=== PATIENT | female | born 1995 ===

== ENCOUNTER 2016-07-28 21:38 | Emergency (ER) | payer SELFPAY ==
[2016-07-28 23:02] LABS: BASO % 0.3 % (0.2-1.0); EOS % 0.5 % (0.9-2.9); HEMATOCRIT 33.9 % (37.0-47.0); IMM NEUT% 0.1 % (0-1); LYMPH # 3.1 (1.0-4.8); LYMPH % 40.9 % (15-45); MEAN CELL VOLUME 81.5 fl (81.0-99.0); MEAN CORPUSCULAR HEMOGLOBIN 26.4 pg (27.0-31.0); MEAN CORPUSCULAR HGB CONC 32.4 g/dl (33.0-37.0); MEAN PLATELET VOLUME 11.8 fl (7.4-10.4); MONO # 0.5 (0.0-0.8); MONO % 6.2 % (4-12); PLATELET COUNT 208 K/mm3 (130-400); RED CELL DISTRIBUTION WIDTH 14.2 % (11.5-14.5)
[2016-07-28 23:28] LABS: SPECIFIC GRAVITY 1.015 (1.001-1.030); URINE BILIRUBIN NEGATIVE (NEGATIVE); URINE BLOOD 3+ (NEGATIVE); URINE GLUCOSE (UA) NEGATIVE (NEGATIVE); URINE LEUKOCYTE ESTERASE NEGATIVE (NEGATIVE); URINE NITRITE NEGATIVE (NEGATIVE); URINE PROTEIN NEGATIVE (NEGATIVE); URINE UROBILINOGEN NORMAL (0-1 mg/dl)
[2016-07-28 23:29] LABS: URINE APPEARANCE CLOUDY; URINE COLOR YELLOW
[2016-07-28 23:39] LABS: URINE AMORPHOUS SEDIMENT 3+ PHOSPHATES; URINE BACTERIA 0; URINE RBC 20-30 /hpf
--- NOTE | 2016-07-29 08:24 | US ---
OB ULTRASOUND LESS THAN 14 WEEKS HISTORY: Cramping and spotting, positive beta hCG. 13 weeks 3 days. Transabdominal and transvaginal obstetric ultrasound was performed. FINDINGS: INTRAUTERINE GESTATION: Present. Gestational sac: Present: Normal contour and fluid volume. CROWN-RUMP LENGTH: 1.3 cm, corresponding to an age of 7 weeks 3 days. The embryonic pole demonstrates a distorted morphology. CARDIAC ACTIVITY: None identified. SONOGRAPHIC MEAN GESTATIONAL AGE: 7 weeks 3 days. YOLK SAC: Not present. KILLIAN-GESTATIONAL HEMORRHAGE: Minimal perigestational hemorrhage, less than 10% of circumference RIGHT OVARY: 2.1 x 3.1 x 1.7 cm. LEFT OVARY: 3.0 x 2.5 x 2.0 cm. FOCAL ADNEXAL LESIONS:None. OVARIAN BLOOD FLOW: Documented bilaterally. FREE FLUID: None. IMPRESSION: Findings most in keeping with embryonic demise. Minimal perigestational hemorrhage is present. No dominant adnexal lesion or free fluid. Preliminary report relayed to the Emergency Medicine medical service by Dr. Beck on 07/28/2016 at 0032 hours.
== END 2016-07-29 01:00 | disposition home or self-care (01) ==
LOC: ED 21:38
DX: O20.0 Threatened abortion (principal); Z3A.00 Weeks of gestation of pregnancy not specified